=== PATIENT | female | born 1970 | race African-American/Black ===

== ENCOUNTER → 2017-12-06 | Outpatient (CLI) | payer OTHER ==
[~2017-12-06] MED LIST: ALPRAZOLAM0.25 M2 PO; CHEMO; COLACE100 MG PO; COMPAZINE10 MG PO; COMPLERA TABLE1 EACH PO; DOCUSATE SODIU100 MG PO; ENDOCET 5-3251 EACH PO; FERROUS SULFAT325 MG PO; HYDROCHLOROTHIA25 MG PO; IBUPROFEN800 MG PO; LISINOPRIL-HCT1 EAC3 PO; LISINOPRIL20 MG PO; MOTRIN600 MG PO; OXAYDO5 MG PO; POTASSIUM CHLO10 ME4 PO; PRILOSEC20 MG PO; RANITIDINE HCL150 MG PO; STOOL SOFTENER100 MG PO; STRIBILD TABLE1 EACH PO; TRAMADOL HCL50 MG PO; VITAMIN D34000 UNIT PO
== END | disposition home or self-care (01) ==
LOC: CDC 09:11
DX: Z01.810 Encounter for preprocedural cardiovascular examination (principal); I10 Essential (primary) hypertension
CPT/HCPCS: 93000

== ENCOUNTER 2017-12-14 08:33 | Day surgery (SDC) | payer OTHER ==
[~2017-12-14] VITALS: Ht 154.9 cm; Wt 68.1 kg
[~2017-12-14 08:33] MED LIST changes: +PRINZIDE 20-121 EACH PO; +TRIUMEQ TABLET1 EACH PO; +XANAX0.25 MG PO
[2017-12-14 09:20] VITALS: BP 118/83
[2017-12-14 10:06] LABS: BASOPHIL (%) 0.6 % (0-1); EOSINOPHIL (%) 1.7 % (0-5); EOSINOPHIL COUNT 0.1 K/uL (0-0.3); HEMATOCRIT 40.5 % (36.0-46.0); HEMOGLOBIN 14.2 G/DL (11.9-15.5); IMMATURE GRANULOCYTE (%) 0.2 % (0.0-0.7); LYMPHOCYTE (%) 55.7 % (15-42); LYMPHOCYTE COUNT 2.6 K/uL (1.0-2.8); MCHC 35.1 G/DL (30.0-36.0); MCV 88.4 FL (83-99); MONOCYTE (%) 11.4 % (3-12); MONOCYTE COUNT 0.5 K/uL (0-0.8); NEUTROPHIL (%) 30.4 % (45-76); NEUTROPHIL COUNT 1.4 K/uL (1.8-6.4); PLATELET COUNT 267 K/uL (156-360); RBC DIS.WIDTH-CV 12.8 % (11.8-14.6); RBC DIS.WIDTH-SD 41.2 % (39-53); RED BLOOD COUNT 4.58 M/uL (3.80-5.20); WHITE BLOOD COUNT 4.7 K/uL (4.1-10.2)
[2017-12-14 16:09] VITALS: BP 139/92
[2017-12-14 20:00] VITALS: BP 99/56
[2017-12-14 23:00] VITALS: BP 99/56
[2017-12-15 03:35] VITALS: BP 92/59
[2017-12-15 07:08] LABS: CHLORIDE 98 MEQ/L (99-109); CREATININE 1.2 MG/DL (0.6-1.3); GFR ESTIMATE (CALCULATED) > 59 mL/min/; GLUCOSE 106 mg/dL (70-99); POTASSIUM 3.6 MEQ/L (3.7-5.4); SODIUM 129 MEQ/L (136-147); UREA NITROGEN (BUN) 9 mg/dL (9-23)
[2017-12-15 07:51] LABS: HEMATOCRIT 27.7 % (36.0-46.0); MCH 30.1 PG (29.0-34.0); MCHC 33.6 G/DL (30.0-36.0); MCV 89.6 FL (83-99); RBC DIS.WIDTH-CV 13.1 % (11.8-14.6); RBC DIS.WIDTH-SD 43.2 % (39-53)
[2017-12-15 07:53] LABS: HEMOGLOBIN 9.3 G/DL (11.9-15.5); RED BLOOD COUNT 3.09 M/uL (3.80-5.20)
[2017-12-15 08:03] LABS: PLAT.SUFFICIENCY ADEQUATE
[2017-12-15 08:05] LABS: PLATELET COUNT 181 K/uL (156-360)
[2017-12-15 08:18] VITALS: BP 93/62
[2017-12-15 09:03] VITALS: BP 106/68
[2017-12-15] MEDS ORDERED: TORADOL10 MG PO (09:34)
[2017-12-15] MEDS ORDERED: PERCOCET 5/31 TABLET PO (09:34)
[2017-12-15] MEDS ORDERED: COLACE100 MG PO (09:34)
[2017-12-15] MEDS ORDERED: CHROMAGEN SOFT1 EACH PO (09:36)
== END 2017-12-15 12:27 | disposition home or self-care (01) ==
LOC: SDC 08:33 → 2SOUTH 13:08 → ENRESERV 13:10 → SDC 15:16 → 2EASTP 15:31
PROVIDERS: Obstetrics & Gynecology
DX: N83.201 Unspecified ovarian cyst, right side (principal); N83.8 Other noninflammatory disorders of ovary, fallopian tube and broad ligament; N73.6 Female pelvic peritoneal adhesions (postinfective); K66.0 Peritoneal adhesions (postprocedural) (postinfection); Z53.31 Laparoscopic surgical procedure converted to open procedure; B20 Human immunodeficiency virus [HIV] disease; F41.9 Anxiety disorder, unspecified; D64.9 Anemia, unspecified; I10 Essential (primary) hypertension; K21.9 Gastro-esophageal reflux disease without esophagitis; Z85.3 Personal history of malignant neoplasm of breast
CPT/HCPCS: 80048; 85025; 85027; 86850; 86900; 86901; 88305; G0378; J0131; J0690; J1100; J1170; J1885; J2405; J2550; J2710; J2765; J3010; J7120; J7643; S0020